=== PATIENT | male | born 1955 | race Caucasian/White ===

== ENCOUNTER 2020-04-30 14:42 | Inpatient (IN) | payer MEDICARE ==
[~2020-04-30 14:42] MED LIST: ACET1TAB12 PO; AMIO200T5 PO; ASPI-556 PO; ATOR40TA71 PO; FURO20TA4 PO; IRON PO; LISI2.5T2 PO; METO25TA6 PO; POTA20TA12 PO
[2020-04-30 15:30] LABS: BASOPHILS % (AUTO) 0.4 % (0.0-5.0); EOSINOPHILS % (AUTO) 1.3 % (0.0-8.0); HEMATOCRIT 29.6 % (42-54); LYMPHOCYTES % (AUTO) 21.8 % (21.0-51.0); MEAN CORPUSCULAR HEMOGLOBIN 29.6 pg (27.0-33.0); MEAN CORPUSCULAR HGB CONC 33.4 g/dL (32.0-36.0); MEAN CORPUSCULAR VOLUME 88.6 fL (79-99); MONOCYTES % (AUTO) 1.3 % (3.0-13.0); NEUTROPHILS % (AUTO) 74.8 % (40.0-77.0); PLATELET COUNT (AUTO) 71 K/uL (130-400); RED BLOOD CELL COUNT(AUTO) 3.34 MIL/uL (4.50-6.20); RED CELL DISTRIBUTION WIDTH 17.2 % (11.0-15.5); WHITE BLOOD COUNT (AUTO) 2.3 K/uL (4.8-10.8)
[2020-04-30] MEDS ORDERED: METHYLPREDNISOLONE SOD SUCC 40MG/ML 1ML ONE (15:30)
[2020-04-30] MEDS ORDERED: CEFTRIAXONE SODIUM 2 GM VIAL ONE (15:31)
[2020-04-30] MEDS ORDERED: SODIUM CHLORIDE 0.9% 100 ML IV ONE (15:31)
[2020-04-30 15:43] LABS: CREATININE 1.2 mg/dL (0.5-1.5); INR 1.12 (0.85-1.15); PARTIAL THROMBOPLASTIN TIME 35.4 SEC (26.3-35.5); POTASSIUM 4.1 mmol/L (3.5-5.1)
[2020-04-30 15:46] LABS: BILIRUBIN,TOTAL 0.5 mg/dL (0.2-1.0); CRP QUANTITATIVE 105.7 mg/L (0.00-9.0); TOTAL PROTEIN, SERUM 6.5 g/dL (6.0-8.3)
[2020-04-30 15:52] LABS: B-TYPE NATRIURETIC PEPTIDE 120 pg/mL (0-100)
[2020-04-30 16:18] LABS: FERRITIN 3585 ng/mL (30-400)
[2020-04-30 16:29] LABS: ABG BASE EXCESS -3.1 mmol/L (-2.0-3.0); ABG HCO3 19.2 mmol/L (21.0-28.0); ABG OXYGEN SATURATION 97.2 % (95.0-99.0); ABG PCO2 28 mmHg (35-48)
[2020-04-30 16:29] LABS: EOSINOPHILS % (MANUAL) 1 % (1-6); LYMPHOCYTES % (MANUAL) 24 % (22-44); MAN.DIFF COMMENT-IMPRESSION MANUAL DIFFERENTIAL; MONOCYTES % (MANUAL) 1 % (2-9); SEGMENTED NEUTROPHILS % 74 % (40-70)
[2020-04-30 16:37] LABS: ERYTHROCYTE SEDIMENTATION RATE 140 MM/HR (0-20)
[2020-04-30] MEDS ORDERED: IOHEXOL 350 MG/ML 100ML INFUS..BTL IV ONE (16:49)
[2020-04-30] MEDS ORDERED: SODIUM CHLORIDE 0.9% 500ML 500 ML IV ONE (16:58)
[2020-04-30] MEDS ORDERED: SODIUM CHLORIDE 0.9% 1000ML 1,000 ML IV ONE (18:59)
[2020-04-30 19:00] VITALS: BP 97/63
[2020-04-30] MEDS ORDERED: AZITHROMYCIN 250 MG TABLET PO ONE (20:04)
[2020-04-30] MEDS: SODIUM CHLORIDE 0.9% 1000ML 1,000 ML IV SCH (22:23)
[2020-04-30 23:00] VITALS: BP 90/61
--- NOTE | 2020-05-01 | NUR ---
Patient received from ED accompanied by staff to 229. Patient assisted to bed and made comfortable. Oriented to room and call light system. Patient put on responder as ordered, Assessment and nursing data bases completed. Patient is on IVF as ordered. On 4Ltr NC. No acute respiratory distress at this time. Will continue to monitor.
[2020-05-01 03:00] VITALS: BP 89/57
[2020-05-01] MEDS ORDERED: [UNRECOGNIZED DRUG - OTHER] (03:50)
[2020-05-01] MEDS ORDERED: OXYC1TAB12 PO (03:50)
[2020-05-01] MEDS ORDERED: [UNRECOGNIZED DRUG - OTHER] PO (03:50)
[2020-05-01] MEDS ORDERED: FLUD0.1T2 PO (03:50)
[2020-05-01] MEDS ORDERED: METO1TAB40 PO (03:50)
[2020-05-01] MEDS ORDERED: [UNRECOGNIZED DRUG - OTHER] PO (03:53)
[2020-05-01] MEDS ORDERED: FAMO20PI2 IV (03:56)
[2020-05-01 04:07] LABS: MEAN CORPUSCULAR HEMOGLOBIN 29.5 pg (27.0-33.0); MEAN CORPUSCULAR HGB CONC 32.7 g/dL (32.0-36.0); MEAN CORPUSCULAR VOLUME 90.3 fL (79-99); RED BLOOD CELL COUNT(AUTO) 2.88 MIL/uL (4.50-6.20); RED CELL DISTRIBUTION WIDTH 17.3 % (11.0-15.5); WHITE BLOOD COUNT (AUTO) 1.8 K/uL (4.8-10.8)
[2020-05-01 04:26] LABS: CREATININE 0.8 mg/dL (0.5-1.5); POTASSIUM 4.6 mmol/L (3.5-5.1)
[2020-05-01 08:00] VITALS: BP 101/69
[2020-05-01] MEDS ORDERED: ENOXAPARIN SODIUM 40 MG/0.4 ML SYRINGE SQ SCH (09:00)
[2020-05-01] MEDS: DEXAMETHASONE SOD PHOSPHATE 4 MG/ML 1ML VIAL IVP SCH (09:00)
[2020-05-01] MEDS: FAMOTIDINE 20MG TAB 20 MG TAB PO SCH (10:00)
[2020-05-01] MEDS: FUROSEMIDE 20 MG TABLET PO SCH (10:00)
[2020-05-01] MEDS: ASPIRIN 81 MG EC TAB PO SCH (10:00)
[2020-05-01] MEDS: AMIODARONE HCL 200 MG TABLET PO SCH (10:00)
[2020-05-01] MEDS: AZITHROMYCIN 250 MG TABLET PO SCH (10:00)
[2020-05-01] MEDS: POTASSIUM CHLORIDE 20 MEQ ERTAB PO SCH (10:00)
[2020-05-01] MEDS: LISINOPRIL 2.5 MG TABLET PO SCH (10:00)
[2020-05-01] MEDS: METOPROLOL TARTRATE 25 MG TAB PO SCH (10:00)
[2020-05-01] MEDS: FERROUS SULFATE 325 MG TABLET.DR PO SCH (10:00)
[2020-05-01] MEDS ORDERED: ONDANSETRON HCL 4 MG/2 ML VIAL IVP PRN (10:45)
[2020-05-01] MEDS: SODIUM CHLORIDE 0.9% 1000ML 1,000 ML IV SCH (11:44)
[2020-05-01 12:05] VITALS: BP 100/65
--- NOTE | 2020-05-01 14:17 | NUR ---
JOHNY PLAN CALLED ROOM PATIENT IN COVID UNIT. NO ANSWER. THE NAME ON THE FACE SHEET IS NOT DIRECT FAMILY. TERRANCE WILL CONTINUE TO FOLLOW. Addendum: 05/01/20 at 1418 by URIAH BAUM RN CM Amended: Links added.
[2020-05-01 16:00] VITALS: BP 97/61
[2020-05-01] MEDS: ATORVASTATIN CALCIUM 40 MG TABLET PO SCH (20:22)
[2020-05-01] MEDS: ENOXAPARIN SODIUM 40 MG/0.4 ML SYRINGE SQ SCH (20:22)
[2020-05-01 20:43] VITALS: BP 99/64
[2020-05-02] VITALS (7 sets, daily range): BP systolic 97–118; BP diastolic 58–71
[2020-05-02] MEDS: SODIUM CHLORIDE 0.9% 1000ML 1,000 ML IV SCH ×3 (00:10→20:34)
--- NOTE | 2020-05-02 01:07 | NUR ---
Patient called to report right hand IV access is out and bleeding. IV fluid on hold, pressure dressing. IV restart to left forearm, 22 neno with good blood return. Patient started back on IV. as ordered. Bed linens changed and pt made comfortable. He continued on 4L NC with no acute respiratory distress at this time. Will continue to monitor. Patient has an Iphone 6 which is present with him in bed, no president. Patient also has a first generation Ipad with president in a clear plastic belonging bag.
[2020-05-02 05:33] LABS: HEMATOCRIT 25.7 % (42-54); LYMPHOCYTES % (AUTO) 20.4 % (21.0-51.0); MEAN CORPUSCULAR HEMOGLOBIN 29.9 pg (27.0-33.0); MEAN CORPUSCULAR HGB CONC 33.1 g/dL (32.0-36.0); MEAN CORPUSCULAR VOLUME 90.5 fL (79-99); MONOCYTES % (AUTO) 2.2 % (3.0-13.0); PLATELET COUNT (AUTO) 48 K/uL (130-400); RED BLOOD CELL COUNT(AUTO) 2.84 MIL/uL (4.50-6.20); RED CELL DISTRIBUTION WIDTH 17.1 % (11.0-15.5); WHITE BLOOD COUNT (AUTO) 2.3 K/uL (4.8-10.8)
[2020-05-02 05:59] LABS: LYMPHOCYTES % (MANUAL) 16 % (22-44); MAN.DIFF COMMENT-IMPRESSION MANUAL DIFFERENTIAL; MONOCYTES % (MANUAL) 2 % (2-9); PLATELET MORPHOLOGY COMMENT MARKED DECREASE; REACTIVE LYMPHOCYTES 4 % (0-0); SEGMENTED NEUTROPHILS % 78 % (40-70)
[2020-05-02 06:09] LABS: ALANINE AMINOTRANSFERASE 21 U/L (12-78); ALBUMIN 1.7 g/dL (3.5-5.0); ASPARTATE AMINOTRANSFERASE 33 U/L (10-37); BILIRUBIN,TOTAL 0.2 mg/dL (0.2-1.0); CARBON DIOXIDE 20 mmol/L (21-32); CHLORIDE 108 mmol/L (101-111); CREATININE 0.8 mg/dL (0.5-1.5); GLOMERULAR FILTR. RATE CALC 103 mL/min (>60); GLUCOSE,RANDOM 170 mg/dL (70-105); PHOSPHORUS 2.2 mg/dL (2.5-4.9); POTASSIUM 3.9 mmol/L (3.5-5.1); SODIUM SERUM 142 mmol/L (136-145); TOTAL PROTEIN, SERUM 5.7 g/dL (6.0-8.3); UREA NITROGEN, BLOOD 16 mg/dL (7-18)
--- NOTE | 2020-05-02 08:30 | NUR ---
COMPLETE ASSESSMENT DONE, VSS, AOX4, NO C/O PAIN AT THIS TIME, SOB W/EXERTION, VERY PLEASANT. ASKED ABOUT CONDITION-DISCUSSION ON POC AND DAILY ROUNTINE. SEE ASSESSMENT.
[2020-05-02] MEDS: DEXAMETHASONE SOD PHOSPHATE 4 MG/ML 1ML VIAL IVP SCH (08:48)
[2020-05-02] MEDS: ENOXAPARIN SODIUM 40 MG/0.4 ML SYRINGE SQ SCH (08:50)
[2020-05-02] MEDS: AMIODARONE HCL 200 MG TABLET PO SCH (08:50)
[2020-05-02] MEDS: LISINOPRIL 2.5 MG TABLET PO SCH (08:51)
[2020-05-02] MEDS: FERROUS SULFATE 325 MG TABLET.DR PO SCH (08:52)
[2020-05-02] MEDS: ASPIRIN 81 MG EC TAB PO SCH (08:52)
[2020-05-02] MEDS: AZITHROMYCIN 250 MG TABLET PO SCH (08:53)
[2020-05-02] MEDS: POTASSIUM CHLORIDE 20 MEQ ERTAB PO SCH (08:53)
[2020-05-02] MEDS: FUROSEMIDE 20 MG TABLET PO SCH (08:53)
[2020-05-02] MEDS: FAMOTIDINE 20MG TAB 20 MG TAB PO SCH (08:53)
[2020-05-02] MEDS: METOPROLOL TARTRATE 25 MG TAB PO SCH (08:53)
--- NOTE | 2020-05-02 13:59 | NUR ---
UP TO CHAIR 4LNC SATS 100%, LINENS CHANGED AND SPECIMEN CUP AND STERILE WIPE GIVEN FOR UA WHEN PATIENT VOIDS AGAIN. TOLERATING UP TO CHAIR
[2020-05-02 16:16] LABS: APPEARANCE,URINE Clear (CLEAR); BILIRUBIN,URINE Negative (NEGATIVE); COLOR,URINE Yellow (YELLOW); GLUCOSE, URINE (UA) Negative (NEGATIVE); KETONES,URINE Negative (NEGATIVE); LEUKOCYTE ESTERASE ,URINE Negative (NEGATIVE); NITRATE,URINE Negative (NEGATIVE); OCCULT BLOOD,URINE Negative (NEGATIVE); PROTEIN,URINE Negative (NEGATIVE); UROBILINOGEN,URINE 0.2 mg/dL (0.2-1.0)
--- NOTE | 2020-05-02 18:29 | NUR ---
RECHECK ON BS WAS 520 REPORT TO MATTHEW VAN ORDERS TO GIVE 10 UNITS OR REGULAR, AND CHANGE TO CLEAR LIQUID DIET. PATIENT REFUSE THE INSULIN STATES HE KNOWS HIS BODY AND HE WILL DROP LOW TONIGHT IF WE KEEP GIVING HIM INSULIN. Addendum: 05/02/20 at 1835 by SUNITA Sun RN THIS NOTE IS DOCUMENTED ON WRONG PATIENT DISREGARD
[2020-05-02] MEDS: ATORVASTATIN CALCIUM 40 MG TABLET PO SCH (20:31)
[2020-05-02] MEDS: FUROSEMIDE 10 MG/ML 2ML VIAL IV SCH (20:31)
--- NOTE | 2020-05-02 22:16 | NUR ---
ROUNDS PT STABLE. NO COMPLAINTS OR SIGNS OF DISTRESS. 4 Ps APPLIED.
[2020-05-03 04:37] VITALS: BP 103/59
[2020-05-03 06:13] LABS: CREATININE 0.7 mg/dL (0.5-1.5); MAGNESIUM 1.8 mg/dL (1.80-2.40); POTASSIUM 3.4 mmol/L (3.5-5.1)
[2020-05-03 07:42] VITALS: BP 121/71
[2020-05-03] MEDS: FUROSEMIDE 10 MG/ML 2ML VIAL IV SCH ×2 (09:00→20:49)
[2020-05-03] MEDS: ASPIRIN 81 MG EC TAB PO SCH (10:35)
[2020-05-03] MEDS: LISINOPRIL 2.5 MG TABLET PO SCH (10:35)
[2020-05-03] MEDS: DEXAMETHASONE 4 MG TAB PO SCH (10:35)
[2020-05-03] MEDS: AZITHROMYCIN 250 MG TABLET PO SCH (10:35)
[2020-05-03] MEDS: AMIODARONE HCL 200 MG TABLET PO SCH (10:35)
[2020-05-03] MEDS: FAMOTIDINE 20MG TAB 20 MG TAB PO SCH (10:35)
[2020-05-03] MEDS: METOPROLOL TARTRATE 25 MG TAB PO SCH (10:35)
[2020-05-03] MEDS: FERROUS SULFATE 325 MG TABLET.DR PO SCH (10:35)
[2020-05-03] MEDS: POTASSIUM CHLORIDE 20 MEQ ERTAB PO SCH (10:39)
[2020-05-03 11:21] VITALS: BP 114/55
--- NOTE | 2020-05-03 12:31 | NUR ---
INITIAL SW spoke to patient's anujeDarrory. Patient lives with devante. He has no home services. DME: [facility]. Patient is able to complete ADL's independently but does not drive. PCP is Dr. Blayne Aponte. Pharmacy is [facility] located on [facility] in [place]. DCP is home. Addendum: 05/03/20 at 1239 by IVY CONRAD SS Amended: Links added.
[2020-05-03] MEDS ORDERED: MAGNESIUM 2GM PREMIX 50ML 50 ML IV ONE (13:15)
[2020-05-03 15:41] VITALS: BP 101/61
[2020-05-03 20:13] VITALS: BP 100/57
[2020-05-03] MEDS: ATORVASTATIN CALCIUM 40 MG TABLET PO SCH (20:49)
--- NOTE | 2020-05-03 21:10 | NUR ---
PAGED BENCHMARK Paged provider instrument/control technician for K+ replacement.
--- NOTE | 2020-05-03 21:38 | NUR ---
PROCESS LEAD CALL BACK Cara BUSTAMANTE gas transfer operator CALLED BACK AND INFORMED OF K+ LEVEL THIS AM.
[2020-05-03] MEDS ORDERED: POTASSIUM CHLORIDE 10% ELIXIR 20 MEQ/15 ML UDCUP PO PRN (21:45)
[2020-05-03] MEDS ORDERED: LIDOCAINE HCL-MPF 1% 2ML VIAL IV PRN (21:45)
[2020-05-03] MEDS ORDERED: POTASSIUM CHLORIDE 20MEQ/100ML 100 ML IV PRN (21:45)
[2020-05-03] MEDS ORDERED: POTASSIUM CHLORIDE 20 MEQ ERTAB PO PRN (21:45)
[2020-05-03 23:45] VITALS: BP 108/54
--- NOTE | 2020-05-04 00:06 | NUR ---
RESTING Pt quietly resting during rounds,tolerating 02 via Nc.No sob noted or reported.
[2020-05-04 04:13] VITALS: BP 96/63
[2020-05-04 04:56] LABS: HEMATOCRIT 25.6 % (42-54); MEAN CORPUSCULAR HEMOGLOBIN 29.8 pg (27.0-33.0); MEAN CORPUSCULAR HGB CONC 33.2 g/dL (32.0-36.0); MEAN CORPUSCULAR VOLUME 89.8 fL (79-99); PLATELET COUNT (AUTO) 57 K/uL (130-400); RED BLOOD CELL COUNT(AUTO) 2.85 MIL/uL (4.50-6.20); WHITE BLOOD COUNT (AUTO) 1.4 K/uL (4.8-10.8)
[2020-05-04 05:13] LABS: CREATININE 0.8 mg/dL (0.5-1.5); MAGNESIUM 2.2 mg/dL (1.80-2.40); POTASSIUM 3.8 mmol/L (3.5-5.1)
[2020-05-04 08:00] VITALS: BP 98/67
[2020-05-04] MEDS: FUROSEMIDE 10 MG/ML 2ML VIAL IV SCH ×2 (08:00→20:57)
[2020-05-04] MEDS: AMIODARONE HCL 200 MG TABLET PO SCH (09:00)
[2020-05-04] MEDS: FERROUS SULFATE 325 MG TABLET.DR PO SCH (09:00)
[2020-05-04] MEDS: FAMOTIDINE 20MG TAB 20 MG TAB PO SCH (09:00)
[2020-05-04] MEDS: DEXAMETHASONE 4 MG TAB PO SCH (09:00)
[2020-05-04] MEDS: LISINOPRIL 2.5 MG TABLET PO SCH (09:00)
[2020-05-04] MEDS: METOPROLOL TARTRATE 25 MG TAB PO SCH (09:00)
[2020-05-04] MEDS: AZITHROMYCIN 250 MG TABLET PO SCH (09:00)
[2020-05-04] MEDS: ASPIRIN 81 MG EC TAB PO SCH (09:00)
[2020-05-04] MEDS: POTASSIUM CHLORIDE 20 MEQ ERTAB PO SCH (09:00)
[2020-05-04 12:00] VITALS: BP 91/62
--- NOTE | 2020-05-04 14:28 | NUR ---
CDA CRITERIA. PATIENT ON ROOM AIR. STAGE IV CANCER RECEIVING CHEMO DOES NOT MEET CRITERIA FOR TRANSFER. Addendum: 05/04/20 at 1430 by URIAH BAUM RN CM Amended: Links added.
[2020-05-04 16:00] VITALS: BP 102/66
[2020-05-04 19:32] VITALS: BP 102/64
[2020-05-04] MEDS: ATORVASTATIN CALCIUM 40 MG TABLET PO SCH (20:57)
[2020-05-04 23:10] VITALS: BP 98/59
[2020-05-05 03:19] VITALS: BP 94/64
[2020-05-05 05:03] LABS: HEMATOCRIT 27.5 % (42-54); LYMPHOCYTES % (AUTO) 47.4 % (21.0-51.0); MEAN CORPUSCULAR HEMOGLOBIN 29.3 pg (27.0-33.0); MEAN CORPUSCULAR HGB CONC 33.1 g/dL (32.0-36.0); MEAN CORPUSCULAR VOLUME 88.4 fL (79-99); MONOCYTES % (AUTO) 30.8 % (3.0-13.0); NEUTROPHILS % (AUTO) 19.9 % (40.0-77.0); NUCLEATED RED BLOOD CELLS 1.3 % (0.0-0.19); PLATELET COUNT (AUTO) 76 K/uL (130-400); RED BLOOD CELL COUNT(AUTO) 3.11 MIL/uL (4.50-6.20); RED CELL DISTRIBUTION WIDTH 16.7 % (11.0-15.5); WHITE BLOOD COUNT (AUTO) 1.6 K/uL (4.8-10.8)
[2020-05-05 05:29] LABS: CREATININE 0.9 mg/dL (0.5-1.5); POTASSIUM 3.5 mmol/L (3.5-5.1)
[2020-05-05 08:00] VITALS: BP 118/69
[2020-05-05] MEDS: FAMOTIDINE 20MG TAB 20 MG TAB PO SCH (08:20)
[2020-05-05] MEDS: AZITHROMYCIN 250 MG TABLET PO SCH (08:20)
[2020-05-05] MEDS: LISINOPRIL 2.5 MG TABLET PO SCH (08:20)
[2020-05-05] MEDS: DEXAMETHASONE 4 MG TAB PO SCH (08:20)
[2020-05-05] MEDS: AMIODARONE HCL 200 MG TABLET PO SCH (08:21)
[2020-05-05] MEDS: FERROUS SULFATE 325 MG TABLET.DR PO SCH (08:21)
[2020-05-05] MEDS: FUROSEMIDE 10 MG/ML 2ML VIAL IV SCH (08:21)
[2020-05-05] MEDS: POTASSIUM CHLORIDE 20 MEQ ERTAB PO SCH (08:21)
[2020-05-05] MEDS: ASPIRIN 81 MG EC TAB PO SCH (08:21)
[2020-05-05] MEDS: METOPROLOL TARTRATE 25 MG TAB PO SCH (08:21)
[2020-05-05 11:08] VITALS: BP 89/56
--- NOTE | 2020-05-05 11:58 | NUR ---
DC PLAN VISITED WITH PATIENT. CONFIRMED INFO ON FACE SHEET. JAYCOB FOR OXYGEN NURSE WITNESSED. LET RESPIRATORY KNOW ORDER RECEIVED. PER ALOK DID NOT QUALIFY FOR HOME 02. LET NURSE KNOW. IN CASE PACKET IS READY ON DESK. Addendum: 05/05/20 at 1200 by URIAH BAUM RN CM Amended: Links added.
[2020-05-05] MEDS ORDERED: DEXA4 PO (14:12)
[2020-05-05 16:00] VITALS: BP 88/55
--- NOTE | 2020-05-05 19:58 | NUR ---
d/c paperwork had been completed on previous shift. patient left floor at 1950 to be picked up in ER
== END 2020-05-05 19:50 | disposition home or self-care (01) | DRG 177 ==
LOC: EDH 14:42 → OBSVTOIN 18:17 → EDHIP 18:17 → 2AH 21:04
PROVIDERS: ADMIT Internal Medicine Critical Care Medicine; ATTEND Internal Medicine Critical Care Medicine
DX: U07.1 COVID-19 (principal); J12.89 Other viral pneumonia; D61.810 Antineoplastic chemotherapy induced pancytopenia; J96.01 Acute respiratory failure with hypoxia; C78.7 Secondary malignant neoplasm of liver and intrahepatic bile duct; I48.20 Chronic atrial fibrillation, unspecified; I50.9 Heart failure, unspecified; I11.0 Hypertensive heart disease with heart failure; T45.1X5A Adverse effect of antineoplastic and immunosuppressive drugs, initial encounter; Y92.89 Other specified places as the place of occurrence of the external cause; Z79.899 Other long term (current) drug therapy; Z79.82 Long term (current) use of aspirin; Z92.21 Personal history of antineoplastic chemotherapy; Z85.038 Personal history of other malignant neoplasm of large intestine; Z95.810 Presence of automatic (implantable) cardiac defibrillator; Z90.49 Acquired absence of other specified parts of digestive tract
CPT/HCPCS: 36415; 36600; 71045; 71275; 80048; 80053; 81003; 82550; 82728; 82803; 83605; 83735; 83880; 84100; 84145; 84484; 85025; 85027; 85378; 85610; 85651; 85730; 86140; 86850; 86900; 86901; 87040; 93005; 94760; G0378; J0696; J1100; J1650; J1940; J2405; J2920; J3475; J7030; J7040; J8540; Q9967; U0003